=== PATIENT | male | born 1950 | race Caucasian/White ===

== ENCOUNTER 2016-09-27 16:50 | Inpatient (IN) ==
[2016-09-27] MEDS: Piperacillin/Tazobactam 3.375 GM in D5% in Water (Mini-Bag+) 100 ML IVPB SCH (22:16)
[2016-09-27] MEDS: Furosemide 40 MG/4 ML VIAL IVP SCH (22:17)
--- NOTE | 2016-09-27 22:19 | Internal Med History&Physical ---
Date of Encounter: 09/27/16 Time of Encounter: 22:14 Assessment and Plan (1) Acute respiratory failure with hypoxia Current visit: Yes Status: Acute Patients currently on high flow nasal oxygen. He is comfortable. Alert oriented times 3. He is not the CO2 retainer. Saturating mid-80s which is his baseline. Arterial blood gas will be performed (2) Interstitial pulmonary fibrosis Current visit: Yes Status: Acute He is a 5 L of nasal oxygen. (3) Diastolic CHF Current visit: Yes Status: Acute I will start the patient on Lasix 40 mg IV daily. Qualifiers: Qualified Code(s): I50.30 - Unspecified diastolic (congestive) heart failure (4) Acute bronchitis Current visit: Yes Status: Acute Zosyn. Check sputum culture. Qualifiers: Qualified Code(s): J20.9 - Acute bronchitis, unspecified (5) Full code status Current visit: Yes Status: Acute Patient is full code. Internal Medicine - H&P: HPI Chief complaint: LE swelling and SOB History of present illness: Mr. Flores is a 66 year old male with a history of interstitial lung fibrosis chronic respiratory failure on 5 L of oxygen at home [facility] with a complaining of lower extremity edema and shortness of breath. Patient had noticed that he has bilateral swelling of both lower extremity. Patient has also been noticing that he is having more short of breath then usual was found to be hypoxic 57% had [facility] and was placed on BiPAP. He is coughing during my interview with scant sputum production. He denies any fevers chills. No sick contacts or recent travel. No chest pain. Arterial blood gas at [facility] performed yesterday was 7.465/35.5/73.7/95.8%. CT angiogram performed a [facility] showed no evidence of pulmonary embolism and no consolation. Past Med Surg Social Fam HX - Past Medical History Medical history: COPD, coronary artery disease, myocardial infarction, other Psychiatric history: no psych history - Social History Smoking Status: Never smoker Smokeless Tobacco Status: No Alcohol use: none Drug use: none Internal Medicine - H&P: Meds Allergies IVP dye Allergy (Uncoded 09/27/16 21:12) Nausea All Systems PM: A 10-system review of systems was performed and is negative for pertinent findings except as documented above in the HPI. Review of systems: 10 point review systems is negative except for HPI - Constitutional Vitals: Temp Pulse Resp BP Pulse Ox 98.8 F 78 20 104/85 83 09/27/16 20:30 09/27/16 21:50 09/27/16 21:50 09/27/16 21:50 09/27/16 21:50 Exam: Gen.: patient is alert oriented times 3 cardiac: normal S1 S2 no additional sounds or murmurs chest: diffuse rales abdomen soft nontender nondistended normal bowel sounds lower extremity 1+ swelling Neuro: no new focal deficits
[2016-09-27 22:41] LABS: ABG Base Excess 0.7 mEq/L (-2.0 to 3.0); ABG Oxygen Saturation 82 % (95-98); ABG PCO2 43 mmHg (35-45); ABG PH 7.39 pH Units (7.32-7.45); ABG TCO2 27.3 mEq/L (20-26)
[2016-09-27 22:46] LABS: Basophils % 0.1 %; Hematocrit 43.4 % (37.5-50.1); Hemoglobin 14.6 g/dL (12.9-16.9); Immature Granulocytes % 0.8 % (0-4); Lymphocytes # 0.6 K/mcL (0.6-4.6); Lymphocytes % 2.4 %; Mean Corpuscular HGB Conc 33.6 g/dL (31.6-35.5); Mean Corpuscular Volume 95.2 fL (83.0-100.0); Mean Platelet Volume 12.6 fL (9.4-12.4); Monocytes % 4.2 %; Neutrophils # 21.3 K/mcL (1.6-8.9); Platelet Count 174 K/mcL (140-400); Red Blood Count 4.56 M/mcL (4.19-5.50); Red Cell Distribution Width 13.7 % (11.5-14.5); Segmented Neutrophils % 92.5 %
[2016-09-27 22:48] LABS: ABG PO2 47 mmHg (85-104); Blood Gas Liter Flow 13 L/MIN
[2016-09-27] MEDS: methylPREDNISolone 125 MG/2 ML VIAL IVP SCH (23:05)
[2016-09-27 23:07] LABS: Platelet Estimate Normal (Normal)
[2016-09-27] MEDS: Ipratropium/Albuterol Neb 3 ML IH SCH (23:53)
[2016-09-27 23:54] LABS: Albumin 3.1 g/dL (3.5-5.0); Albumin/Globulin Ratio 0.9 (1.1-2.2); Bilirubin,Total 0.6 mg/dL (0.2-1.2); Calcium 9.2 mg/dL (8.6-10.8); Globulin 3.6 g/dL (2.4-3.5); Magnesium 2.3 mg/dL (1.6-2.6); Total Protein 6.7 g/dL (6.0-8.3)
[2016-09-28] MEDS: Piperacillin/Tazobactam 3.375 GM in D5% in Water (Mini-Bag+) 100 ML IVPB SCH ×3 (03:05→17:17)
[2016-09-28] MEDS: Ipratropium/Albuterol Neb 3 ML IH SCH ×6 (03:50→22:59)
[2016-09-28 04:50] LABS: Hematocrit 40.7 % (37.5-50.1); Hemoglobin 13.9 g/dL (12.9-16.9); Immature Granulocytes % 1.2 % (0-4); Lymphocytes # 0.6 K/mcL (0.6-4.6); Lymphocytes % 2.9 %; Mean Corpuscular HGB Conc 34.2 g/dL (31.6-35.5); Mean Corpuscular Hemoglobin 32.5 pg (28.0-33.3); Mean Corpuscular Volume 95.1 fL (83.0-100.0); Monocytes # 0.6 K/mcL (0.0-1.3); Monocytes % 2.6 %; Neutrophils # 20.6 K/mcL (1.6-8.9); Platelet Count 146 K/mcL (140-400); Red Blood Count 4.28 M/mcL (4.19-5.50); Red Cell Distribution Width 13.6 % (11.5-14.5); Segmented Neutrophils % 93.3 %
[2016-09-28] MEDS: methylPREDNISolone 125 MG/2 ML VIAL IVP SCH ×4 (05:04→23:53)
[2016-09-28] MEDS: *HR* Enoxaparin 40 MG/0.4 ML SYRINGE SQ SCH (05:05)
[2016-09-28 05:09] LABS: Calcium 9.1 mg/dL (8.6-10.8); Magnesium 2.1 mg/dL (1.6-2.6); Potassium 4.3 mEq/L (3.5-4.5)
[2016-09-28] MEDS: Furosemide 40 MG/4 ML VIAL IVP SCH (07:58)
[2016-09-28] MEDS: Aspirin 325 MG TABLET PO SCH (07:59)
[2016-09-28] MEDS ORDERED: D5% in Water 1,000 ML IVC PRN (10:17)
[2016-09-28] MEDS ORDERED: *HR* Dextrose 50 % in Water (Syg) 50 ML SYRINGE IVP PRN (10:17)
[2016-09-28] MEDS ORDERED: Dextrose Gel 15 GM PO PRN ×2 (10:17)
[2016-09-28] MEDS: Insulin LISPRO 300 UNITS/3 ML VIAL SQ SCH ×3 (12:43→20:08)
--- NOTE | 2016-09-28 14:16 | Pulmonology Consult Note ---
<Jessika Anderson - Last Filed: 09/28/16 14:14> Date of Encounter: 09/28/16 Time of Encounter: 14:14 Assessment and Plan (1) Acute and chronic respiratory failure with hypoxia Current Visit: Yes Status: Acute 4-5 L at home, supposed to be 100% of the time Currently on 13 L high flow nasal cannula with saturations in the low 80s DuoNeb q4H lasix 40mg IVP daily (2) Interstitial pulmonary fibrosis Current Visit: Yes Status: Acute solumedrol 60 mg q6H Check CRP, ANCA, ANCA, rheumatoid factor (3) Neutrophilic leukocytosis Current Visit: Yes Status: Acute Broad-spectrum antibiotics with Zosyn History of Present Illness Consult date: 09/28/16 Requesting physician: Connor Hyde Reason for consult: dyspnea, pulmonary fibrosis Chief complaint: hypoxia History of present illness: Judah Flores is a 66 yo M admitted to the ICU for acute respiratory failure with hypoxia. He presented to [facility] with a three-day history of bilateral pedal edema and was found to be hypoxic with an SPO2 of 57%. He was placed on BiPAP and transferred to [facility]. He has a history of interstitial lung fibrosis and chronic respiratory failure on 5 L of oxygen at home. He states that his lung issues started in June, suddenly. He was seeing a compressor service technician who thought that his javed birds might have been the cause of his coughing spells and shortness of breath. He has subsequently gotten rid of the birds. He does not wear his home oxygen 100% of the time, he will multiple grafts with a riding lawnmower while not wearing oxygen. She states that his shortness of breath and coughing spells have not improved despite seeing the compressor service technician multiple times. He also "had his lungs washed out"to get the birds dust out of them. He states that he had hemoptysis in June. He also reports episodes of days of chills. He also reports sinus congestion. He has tried multiple medications since June including but not limited to allergy medication, cough medication, sinus medication. Past Med Surg Social Fam HX - Past Medical History Source: patient Medical history: COPD, coronary artery disease, myocardial infarction, other Psychiatric history: no psych history - Social History Smoking Status: Never smoker Smokeless Tobacco Status: No Alcohol use: none Drug use: none Medications and Allergies Albuterol Sulfate [Proair Hfa] 2 puff IH Q4H PRN 09/28/16 [History] Aspirin [Lo-Dose Aspirin EC] 81 mg PO DAILY 09/28/16 [History] Atorvastatin Calcium [Lipitor] 80 mg PO HS 09/28/16 [History] Benzonatate [Tessalon] 100 mg PO TID PRN 09/28/16 [History] Clopidogrel [Plavix] 75 mg PO DAILY 09/28/16 [History] Fluticasone Propionate Nasal [Flonase] 1 spray NS DAILY 09/28/16 [History] Fluticasone/Vilanterol [Breo Ellipta 100-25 Mcg INH] 1 puff IH DAILY 09/28/16 [ History] Gabapentin [Neurontin] 300 mg PO TID 09/28/16 [History] Isosorbide MONOnitrate (24 HR) [Imdur] 30 mg PO DAILY 09/28/16 [History] Metoprolol [Lopressor] 50 mg PO BID 09/28/16 [History] Oxygen 3 - 5 l .ROUTE CONT 09/28/16 [History] Tamsulosin [Flomax] 0.4 mg PO DAILY 09/28/16 [History] predniSONE [PredniSONE] 10 mg PO DAILY 09/28/16 [History] Allergies IVP dye Allergy (Uncoded 09/27/16 21:12) Nausea All Systems: A 10-system review of systems was performed and is negative for pertinent findings except as documented above in the HPI. - Constitutional Constitutional: chills, no headache(s) - EENT Nose, mouth and throat: nasal congestion, sinus pressure - Cardiovascular Cardiovascular: no chest pain - Respiratory Respiratory: cough, dyspnea, hemoptysis, dyspnea on exertion, no excessive phlegm production - Gastrointestinal Gastrointestinal: no abdominal pain, no diarrhea, no hematemesis, no hematochezia, no loose stools, no vomiting - Genitourinary Genitourinary: difficulty urinating, urinary hesitancy, no dysuria, no urinary frequency, no urinary incontinence Physical Examination Vital Signs: Vital Signs, Last 4 Hours Temp Pulse Resp BP Pulse Ox 09/28/16 13:00 98 22 136/70 83 09/28/16 12:52 98.0 F 98 16 104/87 81 09/28/16 12:37 98.0 F 09/28/16 11:13 16 85 09/28/16 11:00 69 16 118/69 85 General appearance: no acute distress, other (On 13 L high flow nasal cannula) Eyes: nonicteric ENT: oropharynx moist Neck: supple Effort: normal Inspection: normal Auscultation: bilateral: clear Cardiovascular: regular rate and rhythm Gastrointestinal: normoactive bowel sounds, soft, non-tender Integumentary: normal Extremities: no edema Musculoskeletal: no deformities normal mental status, non-focal exam mood appropriate, affect normal Results - Laboratory Findings CBC and BMP: 09/28/16 04:15 09/28/16 04:15 ABG ABG pH 7.39 pH Units (7.32-7.45) 09/27/16 22:37 ABG pCO2 43 mmHg (35-45) 09/27/16 22:37 ABG pO2 47 mmHg (85-104) L* 09/27/16 22:37 ABG O2 Saturation 82 % (95-98) L 09/27/16 22:37 Abnormal lab findings: Abnormal lab results WBC 22.1 K/mcL (4.3-11.1) H 09/28/16 04:15 MPV 13.0 fL (9.4-12.4) H 09/28/16 04:15 Neutrophils # 20.6 K/mcL (1.6-8.9) H 09/28/16 04:15 ABG pO2 47 mmHg (85-104) L* 09/27/16 22:37 ABG Total CO2 27.3 mEq/L (20-26) H 09/27/16 22:37 ABG O2 Saturation 82 % (95-98) L 09/27/16 22:37 Creatinine 1.49 mg/dL (0.72-1.25) H 09/28/16 04:15 Est GFR ( Amer) 57 (> 60) L 09/28/16 04:15 Est GFR (Non-Af Amer) 47 (> 60) L 09/28/16 04:15 Glucose 213 mg/dL (70-99) H 09/28/16 04:15 POC Glucose 143 (58-89) H 09/27/16 20:14 C-Reactive Protein 50 mg/L (Less than 5) H 09/28/16 10:05 Albumin 3.1 g/dL (3.5-5.0) L 09/27/16 23:29 Globulin 3.6 g/dL (2.4-3.5) H 09/27/16 23:29 Albumin/Globulin Ratio 0.9 (1.1-2.2) L 09/27/16 23:29 - Clinical Findings Intake & Output: Intake & Output 09/27/16 09/28/16 09/28/16 23:59 07:59 15:59 Intake Total 40 / 40 100 / 100 Output Total 600 / 600 900 / 900 1000 / 1000 Balance -560 / -560 -800 / -800 -1000 / -1000 Weight 111.3 kg 112.854 kg Consult Discharge Plan - Plan Referrals: Jazzmine Saez MD [Primary Care Provider] - <Luis Antonio Guadarrama - Last Filed: 09/28/16 16:33> Date of Encounter: 09/28/16 All Systems: A 10-system review of systems was performed and is negative for pertinent findings except as documented above in the HPI. Physical Examination Vital Signs: Vital Signs, Last 4 Hours Temp Pulse Resp BP Pulse Ox 09/28/16 16:19 16 85 09/28/16 14:00 95 22 137/73 85 09/28/16 13:00 98 22 136/70 83 09/28/16 12:52 98.0 F 98 16 104/87 81 09/28/16 12:37 98.0 F Results - Laboratory Findings CBC and BMP: 09/28/16 04:15 09/28/16 04:15 ABG ABG pH 7.39 pH Units (7.32-7.45) 09/27/16 22:37 ABG pCO2 43 mmHg (35-45) 09/27/16 22:37 ABG pO2 47 mmHg (85-104) L* 09/27/16 22:37 ABG O2 Saturation 82 % (95-98) L 09/27/16 22:37 Abnormal lab findings: Abnormal lab results WBC 22.1 K/mcL (4.3-11.1) H 09/28/16 04:15 MPV 13.0 fL (9.4-12.4) H 09/28/16 04:15 Neutrophils # 20.6 K/mcL (1.6-8.9) H 09/28/16 04:15 ABG pO2 47 mmHg (85-104) L* 09/27/16 22:37 ABG Total CO2 27.3 mEq/L (20-26) H 09/27/16 22:37 ABG O2 Saturation 82 % (95-98) L 09/27/16 22:37 Creatinine 1.49 mg/dL (0.72-1.25) H 09/28/16 04:15 Est GFR ( Amer) 57 (> 60) L 09/28/16 04:15 Est GFR (Non-Af Amer) 47 (> 60) L 09/28/16 04:15 Glucose 213 mg/dL (70-99) H 09/28/16 04:15 POC Glucose 143 (58-89) H 09/27/16 20:14 C-Reactive Protein 50 mg/L (Less than 5) H 09/28/16 10:05 Albumin 3.1 g/dL (3.5-5.0) L 09/27/16 23:29 Globulin 3.6 g/dL (2.4-3.5) H 09/27/16 23:29 Albumin/Globulin Ratio 0.9 (1.1-2.2) L 09/27/16 23:29 - Clinical Findings Intake & Output: Intake & Output 09/28/16 09/28/16 09/28/16 07:59 15:59 23:59 Intake Total 100 / 100 Output Total 900 / 900 1000 / 1000 Balance -800 / -800 -1000 / -1000 Weight 112.854 kg - Attending Attestation I have examined the patient and discussed the case with the resident. All pertinent labs and imaging been reviewed. The case was discussed in multidisciplinary Rounds and I agree with the documentation above addition. Neuro: Alert and oriented. Nonfocal exam. Cardiovascular: Mildly tachycardic. Most likely reactive to history distress. Pulmonary: Extensive fibrotic lung disease with significant supplemental oxygen requirement. Etiology uncertain, but unlikely be related to her underlying connective tissue or other inflammatory or vasculitic disorder. 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 Possible recurrent fibrotic lung disease is resolved chronic HP. Plan to continue with empiric corticosteroids, although his chronic steroid use with continued progression is somewhat concerning. Nephro: No acute issues GI: No acute issues ID: No clear evidence of infection. Culture data pending. Currently on empiric antibiotics with plan to discontinue after 72 hours without positive culture data. HO: Leukocytosis. Possibly related to long-term steroid use. Endo: No acute issues MSK: No acute issues Disposition: Remain in ICU Critical care time 35 minutes.
[2016-09-28] MEDS ORDERED: Saline Nasal Spray 44 ML BOTTLE NS PRN (21:47)
[2016-09-29] MEDS: Piperacillin/Tazobactam 3.375 GM in D5% in Water (Mini-Bag+) 100 ML IVPB SCH ×3 (02:29→17:24)
[2016-09-29] MEDS: Ipratropium/Albuterol Neb 3 ML IH SCH ×6 (03:55→23:34)
[2016-09-29 05:21] LABS: Hemoglobin A1C 6.1 %
[2016-09-29] MEDS: *HR* Enoxaparin 40 MG/0.4 ML SYRINGE SQ SCH (05:33)
[2016-09-29] MEDS: methylPREDNISolone 125 MG/2 ML VIAL IVP SCH ×4 (05:33→23:44)
[2016-09-29] MEDS: Furosemide 40 MG/4 ML VIAL IVP SCH (07:44)
[2016-09-29] MEDS: Aspirin 325 MG TABLET PO SCH (07:44)
[2016-09-29] MEDS: Insulin LISPRO 300 UNITS/3 ML VIAL SQ SCH ×4 (07:45→20:50)
--- NOTE | 2016-09-29 07:45 | Pulmonology Progress Note ---
<Jessika Anderson - Last Filed: 09/29/16 11:02> Date of Encounter: 09/29/16 Time of Encounter: 07:43 Assessment and Plan (1) Acute and chronic respiratory failure with hypoxia Current Visit: Yes Status: Acute Currently on 15 L high flow nasal cannula with saturations in the low 80s DuoNeb q4H lasix 40mg IVP daily (2) Interstitial pulmonary fibrosis Current Visit: Yes Status: Acute solumedrol 60 mg q6H rheumatoid factor negative, CRP 50 LIZY, ANCA pending (3) Neutrophilic leukocytosis Current Visit: Yes Status: Acute Potentially due to chronic steroid use Sputum culture ordered Broad-spectrum antibiotics with Zosyn Subjective Principal diagnosis: Acute and chronic respiratory failure with hypoxia Interval history: No acute overnight events. Currently using 15 L high flow nasal cannula Objective PUL Vital signs: Last Vital Signs Temp 98.1 F 09/29/16 04:38 Pulse 94 09/29/16 07:00 Resp 22 09/29/16 07:27 BP 120/58 09/29/16 07:00 Pulse Ox 83 09/29/16 07:27 General appearance: no acute distress Eyes: nonicteric ENT: oropharynx moist Neck: supple Effort: normal Auscultation: bilateral: clear, diminished breath sounds Cardiovascular: regular rate and rhythm Gastrointestinal: normoactive bowel sounds, soft, non-tender Integumentary: normal Extremities: no cyanosis, no edema, pink and warm Musculoskeletal: no deformities normal mental status, non-focal exam Results - Laboratory Findings CBC and BMP: 09/29/16 08:22 09/29/16 04:49 ABG ABG pH 7.39 pH Units (7.32-7.45) 09/27/16 22:37 ABG pCO2 43 mmHg (35-45) 09/27/16 22:37 ABG pO2 47 mmHg (85-104) L* 09/27/16 22:37 ABG O2 Saturation 82 % (95-98) L 09/27/16 22:37 Abnormal lab findings: Abnormal lab results WBC 22.1 K/mcL (4.3-11.1) H 09/28/16 04:15 MPV 13.0 fL (9.4-12.4) H 09/28/16 04:15 Neutrophils # 20.6 K/mcL (1.6-8.9) H 09/28/16 04:15 ABG pO2 47 mmHg (85-104) L* 09/27/16 22:37 ABG Total CO2 27.3 mEq/L (20-26) H 09/27/16 22:37 ABG O2 Saturation 82 % (95-98) L 09/27/16 22:37 Creatinine 1.49 mg/dL (0.72-1.25) H 09/28/16 04:15 Est GFR ( Amer) 57 (> 60) L 09/28/16 04:15 Est GFR (Non-Af Amer) 47 (> 60) L 09/28/16 04:15 Glucose 213 mg/dL (70-99) H 09/28/16 04:15 POC Glucose 166 (58-89) H 09/28/16 19:07 Hemoglobin A1c 6.1 % (-5.6) H 09/29/16 04:49 C-Reactive Protein 50 mg/L (Less than 5) H 09/28/16 10:05 Albumin 3.1 g/dL (3.5-5.0) L 09/27/16 23:29 Globulin 3.6 g/dL (2.4-3.5) H 09/27/16 23:29 Albumin/Globulin Ratio 0.9 (1.1-2.2) L 09/27/16 23:29 - Clinical Findings Intake & Output: Intake & Output 09/28/16 09/28/16 09/29/16 15:59 23:59 07:59 Intake Total 100 / 100 100 / 100 290 / 290 Output Total 1000 / 1000 600 / 600 475 / 475 Balance -900 / -900 -500 / -500 -185 / -185 Weight 112.672 kg Consult Discharge Plan - Plan Referrals: Jazzmine Saez MD [Primary Care Provider] - <Luis Antonio Guadarrama - Last Filed: 09/29/16 13:18> Date of Encounter: 09/29/16 Objective PUL Vital signs: Last Vital Signs Temp 97.6 F 09/29/16 11:48 Pulse 95 09/29/16 12:00 Resp 30 09/29/16 12:00 BP 136/77 09/29/16 12:00 Pulse Ox 81 09/29/16 12:00 Results - Laboratory Findings CBC and BMP: 09/29/16 08:22 09/29/16 04:49 ABG ABG pH 7.39 pH Units (7.32-7.45) 09/27/16 22:37 ABG pCO2 43 mmHg (35-45) 09/27/16 22:37 ABG pO2 47 mmHg (85-104) L* 09/27/16 22:37 ABG O2 Saturation 82 % (95-98) L 09/27/16 22:37 Abnormal lab findings: Abnormal lab results WBC 24.6 K/mcL (4.3-11.1) H 09/29/16 08:22 MPV 12.6 fL (9.4-12.4) H 09/29/16 08:22 Neutrophils # 22.7 K/mcL (1.6-8.9) H 09/29/16 08:22 Lymphocytes # 0.4 K/mcL (0.6-4.6) L 09/29/16 08:22 ABG pO2 47 mmHg (85-104) L* 09/27/16 22:37 ABG Total CO2 27.3 mEq/L (20-26) H 09/27/16 22:37 ABG O2 Saturation 82 % (95-98) L 09/27/16 22:37 Creatinine 1.34 mg/dL (0.72-1.25) H 09/29/16 04:49 Est GFR (Non-Af Amer) 53 (> 60) L 09/29/16 04:49 Glucose 196 mg/dL (70-99) H 09/29/16 04:49 POC Glucose 166 (58-89) H 09/28/16 19:07 Hemoglobin A1c 6.1 % (-5.6) H 09/29/16 04:49 C-Reactive Protein 50 mg/L (Less than 5) H 09/28/16 10:05 Albumin 3.1 g/dL (3.5-5.0) L 09/27/16 23:29 Globulin 3.6 g/dL (2.4-3.5) H 09/27/16 23:29 Albumin/Globulin Ratio 0.9 (1.1-2.2) L 09/27/16 23:29 - Clinical Findings Intake & Output: Intake & Output 09/28/16 09/29/16 09/29/16 23:59 07:59 15:59 Intake Total 100 / 100 390 / 390 Output Total 600 / 600 475 / 475 400 / 400 Balance -500 / -500 -85 / -85 -400 / -400 Weight 112.672 kg - Attending Attestation I examined the patient reviewed the resident's documentation. All pertinent radiographic and laboratory data were reviewed. The patient's case is discussed in multidisciplinary Rounds and I agree with the resident's documentation with the following additions. Neuro: Conscious or not oriented with no focal deficits. Cardiovascular: Tachycardiac but hemodynamics stable. Most likely secondary to acute respiratory distress. Pulmonary: Extensive fibrotic changes some groundglass evident on CT chest. Cause is unknown, but the patient report prior discussion with ceramic coater could be suggestive of hypersensitivity pneumonitis. So far patient has been unresponsive to high dose corticosteroids. Briefly discussed poor prognosis of patient this morning and plan for further discussion with patient once his arrives this afternoon. Also plan to introduce possibility of open lung biopsy. Continues to require high flow supplemental oxygen Nephro: No acute issues GI: Tolerating by mouth intake well no other acute issues. ID: Currently receiving empiric antibiotics been no clear source of infection. Unclear if leukocytosis is indicative of ongoing infection or not. Plan to continue Zosyn pending further evaluation with culture data. HO: Leukocytosis is noted ID Endo: No acute issues MSK: No acute issues Disposition remain in ICU Critical care time 60 minutes
[2016-09-29 09:01] LABS: BUN/Creatinine Ratio 18 (6-26); Blood Urea Nitrogen 24 mg/dL (8-26); Calcium 9.6 mg/dL (8.6-10.8); Carbon Dioxide 25 mEq/L (19-29); Chloride 101 mEq/L (98-109); Glucose 196 mg/dL (70-99); Osmolality,Calculated 295 (280-300); Potassium 4.1 mEq/L (3.5-4.5); Sodium 138 mEq/L (136-145); eGFR For African Americans > 60 (> 60); eGFR For Non-African Americans 53 (> 60)
[2016-09-29 09:11] LABS: Basophils % 0.1 %; Red Cell Distribution Width 13.7 % (11.5-14.5)
[2016-09-29 09:12] LABS: Hematocrit 43.4 % (37.5-50.1); Lymphocytes # 0.4 K/mcL (0.6-4.6); Lymphocytes % 1.5 %; Mean Corpuscular HGB Conc 32.3 g/dL (31.6-35.5); Mean Corpuscular Hemoglobin 31.1 pg (28.0-33.3); Mean Corpuscular Volume 96.4 fL (83.0-100.0); Mean Platelet Volume 12.6 fL (9.4-12.4); Monocytes % 4.2 %; Platelet Count 158 K/mcL (140-400); Segmented Neutrophils % 92.2 %
[2016-09-29 09:30] LABS: Neutrophils # 22.7 K/mcL (1.6-8.9)
[2016-09-29 10:01] LABS: Platelet Estimate Normal (Normal)
[2016-09-30] MEDS: Piperacillin/Tazobactam 3.375 GM in D5% in Water (Mini-Bag+) 100 ML IVPB SCH ×3 (01:22→17:44)
[2016-09-30 03:40] LABS: Basophils % 0.1 %; Hematocrit 39.8 % (37.5-50.1); Hemoglobin 13.4 g/dL (12.9-16.9); Immature Granulocytes % 1.5 % (0-4); Lymphocytes # 0.4 K/mcL (0.6-4.6); Lymphocytes % 1.8 %; Mean Corpuscular HGB Conc 33.7 g/dL (31.6-35.5); Mean Corpuscular Hemoglobin 32.2 pg (28.0-33.3); Mean Corpuscular Volume 95.7 fL (83.0-100.0); Mean Platelet Volume 12.8 fL (9.4-12.4); Monocytes % 5.1 %; Neutrophils # 18.4 K/mcL (1.6-8.9); Nucleated Red Blood Cells 0.1 /100 WBC (0); Platelet Count 144 K/mcL (140-400); Red Blood Count 4.16 M/mcL (4.19-5.50); Red Cell Distribution Width 13.8 % (11.5-14.5); Segmented Neutrophils % 91.5 %
[2016-09-30] MEDS: Ipratropium/Albuterol Neb 3 ML IH SCH ×6 (03:47→23:01)
[2016-09-30 03:52] LABS: BUN/Creatinine Ratio 22 (6-26); Blood Urea Nitrogen 27 mg/dL (8-26); Calcium 9.4 mg/dL (8.6-10.8); Carbon Dioxide 28 mEq/L (19-29); Chloride 101 mEq/L (98-109); Glucose 183 mg/dL (70-99); Osmolality,Calculated 302 (280-300); Sodium 141 mEq/L (136-145); eGFR For African Americans > 60 (> 60); eGFR For Non-African Americans 60 (> 60)
[2016-09-30] MEDS: methylPREDNISolone 125 MG/2 ML VIAL IVP SCH ×4 (05:42→23:15)
[2016-09-30] MEDS: *HR* Enoxaparin 40 MG/0.4 ML SYRINGE SQ SCH (05:43)
[2016-09-30] MEDS: Aspirin 325 MG TABLET PO SCH (08:12)
[2016-09-30] MEDS: Furosemide 40 MG/4 ML VIAL IVP SCH (08:12)
[2016-09-30] MEDS: Insulin LISPRO 300 UNITS/3 ML VIAL SQ SCH ×3 (08:12→16:31)
--- NOTE | 2016-09-30 08:51 | Pulmonology Progress Note ---
<FredyHaylee Diananikki Sanderson - Last Filed: 09/30/16 16:51> Date of Encounter: 09/30/16 Time of Encounter: 08:16 Subjective Principal diagnosis: Acute and chronic respiratory failure with hypoxia Interval history: Per nursing staff, patient required titration of O2 up to 15L from 12L overnight. Patient having episodes of desaturation into the 70% without apparent distress. Patient states that at home over the last few months, he would notice oxygen saturations of 70s and 80s in which he would feel completely comfortable. Patient admits to smoking for greater than 30 years x 1ppd. 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 Patient admits that he feels comfortable breathing 15L, but states that he becomes short of breath when he is talking. The patient states that he was on 5L O2 from June through 1 week ago, when his breathing status began severely worsening. Patient states that he is interested lung transplant at [facility]. I did call [facility] and spoke to the lung transplant surgeon as well as the ICU physician. [facility] will except the patient for further evaluation. However, the transplant surgeon does state that the patient does appear to be a poor candidate. I did discuss these findings with the patient and his . Objective PUL Vital signs: Last Vital Signs Temp 97.9 F 09/30/16 07:00 Pulse 98 09/30/16 06:00 Resp 35 09/30/16 07:42 BP 147/84 09/30/16 07:42 Pulse Ox 81 09/30/16 07:42 Results - Laboratory Findings CBC and BMP: 09/30/16 02:47 09/30/16 02:47 ABG ABG pH 7.39 pH Units (7.32-7.45) 09/27/16 22:37 ABG pCO2 43 mmHg (35-45) 09/27/16 22:37 ABG pO2 47 mmHg (85-104) L* 09/27/16 22:37 ABG O2 Saturation 82 % (95-98) L 09/27/16 22:37 Abnormal lab findings: Abnormal lab results WBC 20.1 K/mcL (4.3-11.1) H 09/30/16 02:47 RBC 4.16 M/mcL (4.19-5.50) L 09/30/16 02:47 MPV 12.8 fL (9.4-12.4) H 09/30/16 02:47 Neutrophils # 18.4 K/mcL (1.6-8.9) H 09/30/16 02:47 Lymphocytes # 0.4 K/mcL (0.6-4.6) L 09/30/16 02:47 Nucleated RBCs/100 WBC 0.1 /100 WBC (0) H 09/30/16 02:47 ABG pO2 47 mmHg (85-104) L* 09/27/16 22:37 ABG Total CO2 27.3 mEq/L (20-26) H 09/27/16 22:37 ABG O2 Saturation 82 % (95-98) L 09/27/16 22:37 BUN 27 mg/dL (8-26) H 09/30/16 02:47 Glucose 183 mg/dL (70-99) H 09/30/16 02:47 POC Glucose 198 (58-89) H 09/29/16 19:39 Hemoglobin A1c 6.1 % (-5.6) H 09/29/16 04:49 Calculated Osmolality 302 (280-300) H 09/30/16 02:47 C-Reactive Protein 50 mg/L (Less than 5) H 09/28/16 10:05 Albumin 3.1 g/dL (3.5-5.0) L 09/27/16 23:29 Globulin 3.6 g/dL (2.4-3.5) H 09/27/16 23:29 Albumin/Globulin Ratio 0.9 (1.1-2.2) L 09/27/16 23:29 - Clinical Findings Intake & Output: Intake & Output 09/29/16 09/30/16 09/30/16 23:59 07:59 15:59 Intake Total 220 / 220 600 / 600 0 / 0 Output Total 200 / 200 200 / 200 Balance 400 / 400 0 / 0 Weight 113.398 kg Consult Discharge Plan - Plan Referrals: Jazzmine Saez MD [Primary Care Provider] - <Luis Antonio Guadarrama - Last Filed: 09/30/16 17:10> Date of Encounter: 09/30/16 Objective PUL Vital signs: Last Vital Signs Temp 98.3 F 09/30/16 15:20 Pulse 102 09/30/16 16:00 Resp 24 09/30/16 16:10 BP 142/90 09/30/16 16:10 Pulse Ox 87 09/30/16 16:10 Results - Laboratory Findings CBC and BMP: 09/30/16 02:47 09/30/16 02:47 ABG ABG pH 7.39 pH Units (7.32-7.45) 09/27/16 22:37 ABG pCO2 43 mmHg (35-45) 09/27/16 22:37 ABG pO2 47 mmHg (85-104) L* 09/27/16 22:37 ABG O2 Saturation 82 % (95-98) L 09/27/16 22:37 Abnormal lab findings: Abnormal lab results WBC 20.1 K/mcL (4.3-11.1) H 09/30/16 02:47 RBC 4.16 M/mcL (4.19-5.50) L 09/30/16 02:47 MPV 12.8 fL (9.4-12.4) H 09/30/16 02:47 Neutrophils # 18.4 K/mcL (1.6-8.9) H 09/30/16 02:47 Lymphocytes # 0.4 K/mcL (0.6-4.6) L 09/30/16 02:47 Nucleated RBCs/100 WBC 0.1 /100 WBC (0) H 09/30/16 02:47 ABG pO2 47 mmHg (85-104) L* 09/27/16 22:37 ABG Total CO2 27.3 mEq/L (20-26) H 09/27/16 22:37 ABG O2 Saturation 82 % (95-98) L 09/27/16 22:37 BUN 27 mg/dL (8-26) H 09/30/16 02:47 Glucose 183 mg/dL (70-99) H 09/30/16 02:47 POC Glucose 198 (58-89) H 09/29/16 19:39 Hemoglobin A1c 6.1 % (-5.6) H 09/29/16 04:49 Calculated Osmolality 302 (280-300) H 09/30/16 02:47 C-Reactive Protein 50 mg/L (Less than 5) H 09/28/16 10:05 Albumin 3.1 g/dL (3.5-5.0) L 09/27/16 23:29 Globulin 3.6 g/dL (2.4-3.5) H 09/27/16 23:29 Albumin/Globulin Ratio 0.9 (1.1-2.2) L 09/27/16 23:29 - Clinical Findings Intake & Output: Intake & Output 09/30/16 09/30/16 09/30/16 07:59 15:59 23:59 Intake Total 600 / 600 220 / 220 Output Total 200 / 200 925 / 925 Balance 400 / 400 -705 / -705 Weight 113.398 kg - Attending Attestation I examined the patient reviewed the resident's documentation. All pertinent radiographic and laboratory data were reviewed. The patient was discussed multidisciplinary rounds and agree with the resident's documentation of the following additions. Neuro: Conscious certainly a nonfocal exam. Cardiovascular: History of NC. Impairment. Tachycardia now. Most likely reactive and related to dyspnea. No evidence of ongoing ischemia. Given patient's current and likely chronic hypoxemia, suspect some degree of undiagnosed pulmonary hypertension and cor pulmonale or right heart failure. Pulmonary: Advanced lung disease with evidence of extensive fibrosis on CT scan. Etiology uncertain but there is mention in history of patient with possible hypersensitivity pneumonitis. Discussed option of open lung biopsy and patient declines. She is however interested in evaluation for transplant. [facility] transplant center contacted. Plan to continue working on arrangements for evaluation counseled patient that he is likely to be deemed a poor candidate. For now we will continue with corticosteroids but have counseled the patient that his lack of progress response after several days of therapy is not reassuring. Nephro: Patient now approximately 3 L net negative over length of stay. Discontinue Lasix GI: Tolerating oral intake well. ID: Has been on empiric Zosyn the low suspicion for infectious etiology at this point. Plan for 1 more day of Zosyn and discontinuation. HO: Continued leukocytosis with slight decreased pessary for hours. Possibly related to high-dose chronic steroids. Also possibly related to infection. No other evidence. Endo: Hyperglycemia probably related to corticosteroid use. Continue sliding scale insulin. MSK no acute issues. Disposition: Patient appropriate for transfer to internal medicine service. Critical care time 45 minutes.
[2016-09-30 10:58] LABS: ANA IgG by ELISA NONE DETECTED (None Detected)
--- NOTE | 2016-09-30 11:19 | Palliative - Consult Note ---
Date of Encounter: 09/30/16 Time of Encounter: 11:00 - Assessment and Plan (1) Dyspnea Current Visit: Yes Status: Acute Assessment and plan: Continues on steroids, diuretics, high flow oxygen, bronchodilators. He qualified for CPAP last week in outpt sleep study by Dr. Razo. Monitor Qualifiers: Dyspnea type: unspecified Qualified Code(s): R06.00 - Dyspnea, unspecified (2) Goals of care, counseling/discussion Current Visit: Yes Status: Acute Assessment and plan: Awaiting to arrive for goals of care discussion. ICU staff to notify team when she arrives. Patient would like her here for discussion. (3) Acute and chronic respiratory failure with hypoxia Current Visit: Yes Status: Acute (4) Interstitial pulmonary fibrosis Current Visit: Yes Status: Acute Palliative-CN HPI - Data of Consult Consult date: 09/30/16 Requesting Physician: Luis Antonio Guadarrama DO Primary Care Provider: Jazzmine Saez MD - Consult Narrative History of present illness: Mr. Flores is a 66 year old male who presented with increasing shortness of breath and hypoxia. He describes onset of shortness of breath originally beginning in June and has been followed by a packing clerk in the [place] area. He has been on Oxygen 5L at home. Prior to admission, he developed respiratory distress and initially was treated in [place] ER, found to be extremely hypoxic with oxygen sat at 57%. He was treated and sent to [place]. Has been utilizing bipap intermittently, receiving IV steroids and diuretics as well as bronchodilators. CT chest by chart review demonstrated ? Thus far , he has not responded well with corticosteroids and is still requiring 15L oxygen, with saturations in the mid-high 80's. Upon my visit, he is resting comfortably watching television. He is alert/ oriented and talkative, although does become dyspneic with conversation. Denies any pain or discomfort. States he is eating and drinking well. No nausea. + BM yesterday. Awaiting to visit today - states the electricity is out and unsure of her arrival time. CC: Luis Antonio Guadarrama DO Past Med Surg Social Fam HX - Past Medical History Medical history: COPD, coronary artery disease, myocardial infarction, other Psychiatric history: no psych history - Social History Smoking Status: Never smoker Smokeless Tobacco Status: No Alcohol use: none Drug use: none Medications and Allergies Albuterol Sulfate [Proair Hfa] 2 puff IH Q4H PRN 09/28/16 [History] Aspirin [Lo-Dose Aspirin EC] 81 mg PO DAILY 09/28/16 [History] Atorvastatin Calcium [Lipitor] 80 mg PO HS 09/28/16 [History] Benzonatate [Tessalon] 100 mg PO TID PRN 09/28/16 [History] Clopidogrel [Plavix] 75 mg PO DAILY 09/28/16 [History] Fluticasone Propionate Nasal [Flonase] 1 spray NS DAILY 09/28/16 [History] Fluticasone/Vilanterol [Breo Ellipta 100-25 Mcg INH] 1 puff IH DAILY 09/28/16 [ History] Gabapentin [Neurontin] 300 mg PO TID 09/28/16 [History] Isosorbide MONOnitrate (24 HR) [Imdur] 30 mg PO DAILY 09/28/16 [History] Metoprolol [Lopressor] 50 mg PO BID 09/28/16 [History] Oxygen 3 - 5 l .ROUTE CONT 09/28/16 [History] Tamsulosin [Flomax] 0.4 mg PO DAILY 09/28/16 [History] predniSONE [PredniSONE] 10 mg PO DAILY 09/28/16 [History] Allergies IVP dye Allergy (Uncoded 09/27/16 21:12) Nausea All systems: reviewed and no additional remarkable complaints except as stated ( shortness of breath at rest and with any exertion, frequent urination, insomnia) Palliative Care-Exam - Constitutional Vitals: Temp Pulse Resp BP Pulse Ox 97.9 F 99 22 144/79 87 09/30/16 07:00 09/30/16 09:00 09/30/16 11:12 09/30/16 11:12 09/30/16 11:12 General appearance: Present: mild distress - Head Head Exam: Present: normal inspection, normocephalic - Eye Eye exam: Present: normal appearance, PERRL - Respiratory Respiratory exam: Present: decreased breath sounds, CTAB - Cardiovascular Cardiovascular exam: Present: +S1, +S2 - GI/Abdominal Exam GI/Abdominal exam: Present: normal bowel sounds, soft - Extremities Exam Extremities exam: Present: normal capillary refill, normal inspection - Neurological Exam Neurological exam: Present: alert, oriented X3, strengths equal and symetr throughout - Skin Skin exam: Present: dry, normal color, warm Internal Medicine - CN: Reslt - Labs CBC & Chem 7: 09/30/16 02:47 09/30/16 02:47 Labs: Short CBC 09/30/16 Range/Units 02:47 WBC 20.1 H (4.3-11.1) K/mcL Hgb 13.4 (12.9-16.9) g/dL Hct 39.8 (37.5-50.1) % Plt Count 144 (140-400) K/mcL Neutrophils # 18.4 H (1.6-8.9) K/mcL BMP 09/30/16 02:47 Sodium 141 Potassium 4.0 Chloride 101 Carbon Dioxide 28 BUN 27 H Creatinine 1.21 Glucose 183 H Calcium 9.4 - ABG Interpretation ABG results: ABG ABG pH 7.39 pH Units (7.32-7.45) 09/27/16 22:37 ABG pCO2 43 mmHg (35-45) 09/27/16 22:37 ABG pO2 47 mmHg (85-104) L* 09/27/16 22:37 ABG O2 Saturation 82 % (95-98) L 09/27/16 22:37 Consult Discharge Plan - Plan Referrals: Jazzmine Saez MD [Primary Care Provider] - Palliative Quality Palliative Quality: Screen for Code Status: Yes, Screen for Goals of Care: Yes, Screen for Pain: Yes, If Pain Regimen Started, Initiate Bowel Regimen: Yes, Screen for Nausea/Vomitting: Yes Code Status: 09/27/16 21:56 Resuscitation Status: Active [RES] Routine Comment: Resuscitation Status: Full Code
[2016-09-30] MEDS ORDERED: *HR* Dextrose 50 % in Water (Syg) 50 ML SYRINGE IVP PRN (12:25)
[2016-09-30] MEDS ORDERED: D5% in Water 1,000 ML IVC PRN (12:25)
[2016-09-30] MEDS ORDERED: Dextrose Gel 15 GM PO PRN ×2 (12:25)
[2016-09-30] MEDS ORDERED: Saline Nasal Spray 44 ML BOTTLE NS PRN (12:25)
--- NOTE | 2016-09-30 14:23 | Event Note ---
Date of Encounter: 09/30/16 Time of Encounter: 14:15 Discussion with pt//and daughter concerning goals of care. His understanding is that there is nothing more that can be done with his disease, and he most likely is not a candidate for transplant. /daughter tearful at bedside. Discussed Palliative/Hospice care at home and what they could provide pt in way of nursing care, DME setup, and comfort care. We discussed that most pt's transition to do not resuscitate. Patient verbalized understanding. He stated that although he would rather go home, he desires to get second opinion from [place]. States if they do not have anything to offer him, he would feel comfortable transferring home with hospice care. and daughter in agreement and hoping pt can be transferred from here. D/W Dr. Daniel. Will continue to follow.
[2016-09-30] MEDS ORDERED: Melatonin 3 MG TABLET PO SCH ×2 (16:00→21:00)
[2016-09-30] MEDS: Isosorbide MONOnitrate (24 HR) 30 MG TAB.ER.24H PO SCH (16:32)
[2016-09-30] MEDS: Fluticasone Propionate Nasal 50 MCG/SPRAY BOTTLE NS SCH (16:33)
--- NOTE | 2016-09-30 17:29 | Electrocardiograph Report ---
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
[2016-09-30] MEDS ORDERED: Perflutren Lipid Microsphere 1.3 ML in 0.9 % Sodium Chloride 8.7 ML IVP ONE (19:59)
[2016-09-30] MEDS ORDERED: Perflutren Lipid Microsphere 2 ML VIAL ONE (20:02)
[2016-09-30] MEDS ORDERED: Insulin LISPRO 300 UNITS/3 ML VIAL SQ SCH (21:00)
[2016-10-01] MEDS: Piperacillin/Tazobactam 3.375 GM in D5% in Water (Mini-Bag+) 100 ML IVPB SCH ×2 (01:05→10:17)
[2016-10-01] MEDS: Ipratropium/Albuterol Neb 3 ML IH SCH ×6 (04:00→19:45)
[2016-10-01] MEDS: methylPREDNISolone 125 MG/2 ML VIAL IVP SCH ×2 (05:07→12:41)
[2016-10-01 05:13] LABS: Basophils % 0.1 %; Hematocrit 38.8 % (37.5-50.1); Hemoglobin 12.9 g/dL (12.9-16.9); Immature Granulocytes % 1.7 % (0-4); Lymphocytes # 0.7 K/mcL (0.6-4.6); Lymphocytes % 3.4 %; Mean Corpuscular HGB Conc 33.2 g/dL (31.6-35.5); Mean Corpuscular Hemoglobin 31.8 pg (28.0-33.3); Mean Corpuscular Volume 95.6 fL (83.0-100.0); Mean Platelet Volume 12.4 fL (9.4-12.4); Monocytes # 1.2 K/mcL (0.0-1.3); Monocytes % 5.7 %; Neutrophils # 18.2 K/mcL (1.6-8.9); Platelet Count 146 K/mcL (140-400); Red Blood Count 4.06 M/mcL (4.19-5.50); Red Cell Distribution Width 13.8 % (11.5-14.5); Segmented Neutrophils % 89.1 %
[2016-10-01 05:24] LABS: BUN/Creatinine Ratio 26 (6-26); Blood Urea Nitrogen 32 mg/dL (8-26); Calcium 9.7 mg/dL (8.6-10.8); Carbon Dioxide 29 mEq/L (19-29); Chloride 99 mEq/L (98-109); Glucose 164 mg/dL (70-99); Osmolality,Calculated 297 (280-300); Sodium 138 mEq/L (136-145); eGFR For African Americans > 60 (> 60); eGFR For Non-African Americans 58 (> 60)
[2016-10-01 05:25] LABS: Potassium 4.4 mEq/L (3.5-4.5)
[2016-10-01] MEDS ORDERED: *HR* Enoxaparin 40 MG/0.4 ML SYRINGE SQ SCH (06:00)
[2016-10-01] MEDS: Insulin LISPRO 300 UNITS/3 ML VIAL SQ SCH ×2 (08:24→12:41)
[2016-10-01] MEDS: Isosorbide MONOnitrate (24 HR) 30 MG TAB.ER.24H PO SCH (08:25)
[2016-10-01] MEDS: Fluticasone Propionate Nasal 50 MCG/SPRAY BOTTLE NS SCH (08:31)
[2016-10-01] MEDS ORDERED: Aspirin 325 MG TABLET PO SCH (09:00)
--- NOTE | 2016-10-01 10:48 | Event Note ---
Date of Encounter: 10/01/16 Time of Encounter: 10:45 Saw pt briefly. He still desires a second opinion at [facility] - if they do not have anything to offer pt, he will most likely transition home with hospice care. He is comfortable at this time, reading the Bible. No complaints. Awaiting insurance approval for transfer. If patient would change his mind and decide to pursue home rather than transfer, please notify the palliative team so we can work on arrangements for increased oxygen delivery in the home and other DME needs.
[2016-10-01 10:55] LABS: Myeloperoxidase Ab 2 AU/mL (0-19); Serine Protease-3 Antibody 0 AU/mL (0-19)
--- NOTE | 2016-10-01 12:14 | Pulmonology Progress Note ---
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 Lungs with presence of bilateral dry rales. 85% on 15L at rest. Continue Solu-medrol, duonebs. Cardiovascular: Systolic blood pressures are stable in 110s. Echo from LVEF 65-70%, mild LVH, mild LV diastolic dysfunction, RV not well visualized , TR jet not well visualized. Therefore, pulmonary HTB cannot be ruled out. GI/Nutrition/Electrolytes/Fluids: Diabetic diet. GI Prophylaxis: none necessary Renal: No evidence of DONIS, good urine output in last 24 hours. ID: Leukocytosis stable at WBC 20. Will discontinue Zosyn today. Afebrile overnight. Heme/Onc: No abnormalities noted. DVT Prophylaxis: Lovenox Endocrine: Low-dose TIDAC. Hypoglycemia protocol. Lines: All lines checked and no evidence of infections Skin: skin care to prevent pressure ulcers per nursing routine care. Code status: Full code (2) Interstitial pulmonary fibrosis Current Visit: Yes Status: Acute (3) Diastolic CHF Current Visit: Yes Status: Acute Qualifiers: Congestive heart failure chronicity: chronic Qualified Code(s): I50.32 - Chronic diastolic (congestive) heart failure (4) Neutrophilic leukocytosis Current Visit: Yes Status: Acute (5) Goals of care, counseling/discussion Current Visit: Yes Status: Acute Subjective Principal diagnosis: Acute and chronic respiratory failure with hypoxia Interval history: Per nursing staff, patient continues to require 15L high flow NC to maintain O2 sat at 85%. We have sent request to patient's insurance, [employer], to allow patient to transfer to [facility] for evaluation of possible lung transplant. We are awaiting word from patient's insurance on this approval. Patient's transfer to [facility] is therefore pending. Objective PUL Vital signs: Last Vital Signs Temp 97.9 F 10/01/16 11:33 Pulse 73 10/01/16 10:00 Resp 24 10/01/16 10:00 BP 136/68 10/01/16 08:10 Pulse Ox 87 10/01/16 10:00 General appearance: other Eyes: nonicteric ENT: oropharynx moist Neck: supple Effort: mildly labored Auscultation: bilateral: wheezes (Diffuse wheezing throughout ), rales (Dry velcro-like rales to bilateral lung bases) Cardiovascular: regular rate and rhythm Gastrointestinal: normoactive bowel sounds, soft, non-tender, non-distended Integumentary: normal Extremities: no cyanosis, no edema, no clubbing Musculoskeletal: no deformities Gait: normal posture normal mental status, non-focal exam mood appropriate, affect normal Results - Laboratory Findings CBC and BMP: 10/01/16 04:55 10/01/16 04:55 ABG ABG pH 7.39 pH Units (7.32-7.45) 09/27/16 22:37 ABG pCO2 43 mmHg (35-45) 09/27/16 22:37 ABG pO2 47 mmHg (85-104) L* 09/27/16 22:37 ABG O2 Saturation 82 % (95-98) L 09/27/16 22:37 Abnormal lab findings: Abnormal lab results WBC 20.4 K/mcL (4.3-11.1) H 10/01/16 04:55 RBC 4.06 M/mcL (4.19-5.50) L 10/01/16 04:55 Neutrophils # 18.2 K/mcL (1.6-8.9) H 10/01/16 04:55 Nucleated RBCs/100 WBC 0.1 /100 WBC (0) H 09/30/16 02:47 ABG pO2 47 mmHg (85-104) L* 09/27/16 22:37 ABG Total CO2 27.3 mEq/L (20-26) H 09/27/16 22:37 ABG O2 Saturation 82 % (95-98) L 09/27/16 22:37 BUN 32 mg/dL (8-26) H 10/01/16 04:55 Est GFR (Non-Af Amer) 58 (> 60) L 10/01/16 04:55 Glucose 164 mg/dL (70-99) H 10/01/16 04:55 POC Glucose 138 (58-89) H 09/30/16 20:29 Hemoglobin A1c 6.1 % (-5.6) H 09/29/16 04:49 C-Reactive Protein 50 mg/L (Less than 5) H 09/28/16 10:05 Albumin 3.1 g/dL (3.5-5.0) L 09/27/16 23:29 Globulin 3.6 g/dL (2.4-3.5) H 09/27/16 23:29 Albumin/Globulin Ratio 0.9 (1.1-2.2) L 09/27/16 23:29 - Clinical Findings Intake & Output: Intake & Output 09/30/16 10/01/16 10/01/16 23:59 07:59 15:59 Intake Total 110 / 110 100 / 100 480 / 480 Output Total 100 / 100 300 / 300 250 / 250 Balance -200 / -200 230 / 230 - VTE Documentation of Mechanical Device: Intermittent pneumatic compression device Consult Discharge Plan - Plan Referrals: Jazzmine Saez MD [Primary Care Provider] - <Luis Antonio Guadarrama - Last Filed: 10/01/16 15:29> Date of Encounter: 10/01/16 Objective PUL Vital signs: Last Vital Signs Temp 97.9 F 10/01/16 11:33 Pulse 77 10/01/16 13:45 Resp 27 10/01/16 13:45 BP 147/76 10/01/16 11:50 Pulse Ox 87 10/01/16 13:45 Results - Laboratory Findings CBC and BMP: 10/01/16 04:55 10/01/16 04:55 ABG ABG pH 7.39 pH Units (7.32-7.45) 09/27/16 22:37 ABG pCO2 43 mmHg (35-45) 09/27/16 22:37 ABG pO2 47 mmHg (85-104) L* 09/27/16 22:37 ABG O2 Saturation 82 % (95-98) L 09/27/16 22:37 Abnormal lab findings: Abnormal lab results WBC 20.4 K/mcL (4.3-11.1) H 10/01/16 04:55 RBC 4.06 M/mcL (4.19-5.50) L 10/01/16 04:55 Neutrophils # 18.2 K/mcL (1.6-8.9) H 10/01/16 04:55 Nucleated RBCs/100 WBC 0.1 /100 WBC (0) H 09/30/16 02:47 ABG pO2 47 mmHg (85-104) L* 09/27/16 22:37 ABG Total CO2 27.3 mEq/L (20-26) H 09/27/16 22:37 ABG O2 Saturation 82 % (95-98) L 09/27/16 22:37 BUN 32 mg/dL (8-26) H 10/01/16 04:55 Est GFR (Non-Af Amer) 58 (> 60) L 10/01/16 04:55 Glucose 164 mg/dL (70-99) H 10/01/16 04:55 POC Glucose 138 (58-89) H 09/30/16 20:29 Hemoglobin A1c 6.1 % (-5.6) H 09/29/16 04:49 C-Reactive Protein 50 mg/L (Less than 5) H 09/28/16 10:05 Albumin 3.1 g/dL (3.5-5.0) L 09/27/16 23:29 Globulin 3.6 g/dL (2.4-3.5) H 09/27/16 23:29 Albumin/Globulin Ratio 0.9 (1.1-2.2) L 09/27/16 23:29 - Clinical Findings Intake & Output: Intake & Output 09/30/16 10/01/16 10/01/16 23:59 07:59 15:59 Intake Total 110 / 110 100 / 100 480 / 480 Output Total 100 / 100 300 / 300 450 / 450 Balance 10 / 10 -200 / -200 30 / 30 - Attending Attestation I have examined the patient reviewed documentation. All pertinent radiographic and laboratory data were reviewed. The patient was discussed in multidisciplinary Rounds and I agree with the resident's documentation with the following additions. Neuro: Alert and oriented with nonfocal exam. Cardiovascular: History of AR within the past 12 months currently hemodynamically stable with no evidence of ongoing ischemia. Reviewed prior echo data which indicated a grossly normal ventricular function. Pulmonary: Extensive fibrotic lung disease of unknown etiology. Possibly related to chronic HP but this cannot be confirmed. Requiring 15 mL/m supplemental oxygen to maintain SPO2 greater than 80%. Indeterminate evaluations been performed as outpatient. Case was discussed with [facility] for transplant candidacy. Provider has agreed to accept evaluate patient pending availability in her ICU. Nephro: No acute issues. GI: Tolerating enteral intake. ID: Leukocytosis remains elevated otherwise patient has no findings indicative infection. Discontinue Zosyn today. HO: Persistent leukocytosis most likely related to steroid use and emargination from acute distress. Endocrine: Hyperglycemia most likely related to undiagnosed diabetes versus high -dose corticosteroid administration. Continue sliding scale. Musculoskeletal: No acute issues. Disposition: Appropriate for transfer to internal medicine. Interfacility transfer to [facility] pending bed availability
[2016-10-01] MEDS ORDERED: Saline Nasal Spray 44 ML BOTTLE NS PRN (15:11)
[2016-10-01] MEDS ORDERED: Dextrose Gel 15 GM PO PRN ×2 (15:11)
[2016-10-01] MEDS ORDERED: D5% in Water 1,000 ML IVC PRN (15:11)
[2016-10-01] MEDS ORDERED: *HR* Dextrose 50 % in Water (Syg) 50 ML SYRINGE IVP PRN (15:11)
[2016-10-01] MEDS ORDERED: Insulin LISPRO 300 UNITS/3 ML VIAL SQ SCH ×2 (16:30→21:00)
[2016-10-01] MEDS ORDERED: methylPREDNISolone 125 MG/2 ML VIAL IVP SCH (18:00)
[2016-10-01 20:51] VITALS: BP 122/68
[2016-10-01] MEDS ORDERED: Melatonin 3 MG TABLET PO SCH (21:00)
[2016-10-02] MEDS ORDERED: *HR* Enoxaparin 40 MG/0.4 ML SYRINGE SQ SCH (06:00)
[2016-10-02] MEDS ORDERED: Fluticasone Propionate Nasal 50 MCG/SPRAY BOTTLE NS SCH (09:00)
[2016-10-02] MEDS ORDERED: Aspirin 325 MG TABLET PO SCH (09:00)
[2016-10-02] MEDS ORDERED: Isosorbide MONOnitrate (24 HR) 30 MG TAB.ER.24H PO SCH (09:00)
== END 2016-10-01 23:11 | disposition short-term general hospital (02) | DRG 196 ==
LOC: ICNU 20:05
PROVIDERS: ADMIT Internal Medicine Pulmonary Disease; ATTEND Internal Medicine Pulmonary Disease